=== PATIENT | female | born 1930 | race Caucasian/White ===

== ENCOUNTER 2017-01-16 21:03 | Inpatient (IN) | payer OTHER, MEDICARE ==
[~2017-01-16] VITALS: Ht 160 cm; Wt 57.6 kg
--- NOTE | 2017-01-16 21:03 | NUR ---
BIBA TO ER BED 7
[2017-01-16 21:07] VITALS: BP 161/81
--- NOTE | 2017-01-16 21:15 | NUR ---
86/F bib from [facility] for evaluation of weakness. Pt is found resting comfortably, arousable to verbal stimuli. Per daughter, patient has hx of a.fib, and CVA and states "She can't talk." Pt was able to answer by nodding her head and spoke few words. Pt is awake, unable to make her needs known. Pt on cardiac cath technologist, pulse oximetry and blood pressure monitoring. Skin warm and dry, loose. Pt arrived with an IV in place to left wrist, 20 gauge, patent, no signs of infiltration. Pt placed on pacer pads via crash cart prophylacticly.
[2017-01-16] MEDS ORDERED: QUET25TA PO (21:19)
[2017-01-16] MEDS ORDERED: APIX2.5 PO (21:19)
[2017-01-16] MEDS ORDERED: DIGO0.121 PO (21:19)
[2017-01-16] MEDS ORDERED: METO25TA PO (21:19)
[2017-01-16] MEDS ORDERED: CAR30 PO (21:19)
[2017-01-16] MEDS ORDERED: DIT5 PO (21:19)
[2017-01-16] MEDS ORDERED: MEMA5TAB PO (21:19)
[2017-01-16 21:49] LABS: BASOPHILS # (AUTO) 0.1 K/uL (0.00-0.22); BASOPHILS % (AUTO) 1.4 % (0.0-2.0); EOSINOPHILS # (AUTO) 0.1 K/uL (0-0.4); HEMATOCRIT 38.3 % (36-48); HEMOGLOBIN 12.3 g/dL (12.0-16.0); LYMPHOCYTES # (AUTO) 1.6 K/uL (2.5-16.5); LYMPHOCYTES % (AUTO) 22.6 % (20.5-51.1); MEAN CORPUSCULAR HEMOGLOBIN 27 pg (27-31); MEAN CORPUSCULAR HGB CONC 32 g/dL (33-37); MEAN CORPUSCULAR VOLUME 85 fL (80-94); MONOCYTES # (AUTO) 0.7 K/uL (0.8-1.0); MONOCYTES % (AUTO) 9.7 % (1.7-9.3); NEUTROPHILS # (AUTO) 4.6 K/uL (1.8-7.7); NEUTROPHILS % (AUTO) 64.3 % (42.2-75.2); PLATELET COUNT (AUTO) 185 K/uL (140-450); RED BLOOD CELL COUNT(AUTO) 4.52 MIL/uL (4.20-5.40); RED CELL DISTRIBUTION WIDTH 12.5 % (11.6-13.7); WHITE BLOOD COUNT (AUTO) 7.1 K/uL (4.8-10.8)
[2017-01-16 22:03] LABS: ANION GAP 11.7 (8-16); CALCIUM 8.2 mg/dL (8.5-10.1); CARBON DIOXIDE 28.2 mmol/L (21-32); CHLORIDE 108 mmol/L (98-107); CREATININE 1.1 mg/dL (0.6-1.3); GLUCOSE 104 mg/dL (74-106); POTASSIUM 3.9 mmol/L (3.5-5.1); SODIUM SERUM 144 mmol/L (136-145); UREA NITROGEN, BLOOD 20 mg/dL (7-18)
--- NOTE | 2017-01-16 22:04 | NUR ---
Daughter at bedside.
[2017-01-16 22:06] LABS: INR 1.2 (0.8-1.2); PARTIAL THROMBOPLASTIN TIME 28.3 secs (22-35.6); PROTHROMBIN TIME 12.3 secs (10.8-13.4)
[2017-01-16 22:09] LABS: ALANINE AMINOTRANSFERASE 22 U/L (14-59); ALBUMIN 3.3 g/dL (3.4-5.0); ALKALINE PHOSPHATASE 68 U/L (46-116); ASPARTATE AMINOTRANSFERASE 18 U/L (15-37); TOTAL BILIRUBIN 0.9 mg/dL (0.0-1.0); TOTAL PROTEIN, SERUM 5.8 g/dL (6.4-8.2)
[2017-01-16 22:10] LABS: LACTIC ACID 1.5 mmol/L (0.4-2.0)
[2017-01-16] MEDS ORDERED: cefTRIAXone 1,000 MG VIAL ONE (22:51)
[2017-01-16 23:05] LABS: APPEARANCE,URINE CLOUDY (CLEAR); BILIRUBIN,URINE NEGATIVE (NEGATIVE); BLOOD, URINE NEGATIVE (NEGATIVE); COLOR,URINE YELLOW (YELLOW); LEUKOCYTE ESTERASE ,URINE 1+ (NEGATIVE); NITRITE, URINE POSITIVE (NEGATIVE); PROTEIN,URINE 1+ (NEGATIVE); UGLUCOSE NEGATIVE (NEGATIVE); UROBILINOGEN,URINE 0.2 EU/dL (0.2 - 1)
--- NOTE | 2017-01-16 23:07 | NUR ---
Patient appears to be resting comfortably in bed. Vital Signs within normal limits. Respirations even and unlabored.
[2017-01-16 23:46] LABS: BACTERIA,URINE 4+ /HPF (None Seen); RBC,URINE 0-5 (RARE) /HPF (0-5); SQUAMOUS EPITHELIAL CELL,UR 0-3 (FEW) /LPF (0-3 (FEW)); WBC,URINE TOO MANY TO COUNT /HPF (0-5); WHITE BLOOD CELL CASTS,URINE 0-3 /LPF (None Seen)
--- NOTE | 2017-01-16 23:50 | NUR ---
Pt cleanse with no rinse cleanser, new gown applied, old gown removed. New dry blue andres pads applied and brief applied. Pt tolerated well. Daughter at bedside. VSS. Warm blankets and pillow provided
[2017-01-16] MEDS: NACL 0.9% 1,000 ML IV SCH (23:52)
--- NOTE | 2017-01-16 23:52 | NUR ---
Pt report given to Iglesia BARTH. Transfer of care at this time.
[2017-01-16] MEDS ORDERED: MORPHINE SULFATE 2 MG/ML SYR IVP PRN (23:55)
[2017-01-16] MEDS ORDERED: ACETAMINOPHEN 325 MG TAB PO PRN (23:55)
[2017-01-16] MEDS ORDERED: ONDANSETRON 4 MG/2 ML VIAL IM/IVP PRN (23:55)
[2017-01-16] MEDS ORDERED: HYDROcodone/APAP 7.5/325 MG 1 TAB PO PRN (23:55)
[2017-01-16] MEDS ORDERED: DOCUSATE SODIUM 100 MG GELCAP PO PRN (23:55)
--- NOTE | 2017-01-17 00:14 | NUR ---
Chart checked and completed. The patient's care was reviewed and supervised by Parminder Carias RN.
--- NOTE | 2017-01-17 00:14 | NUR ---
Patient will be admitted to care of . Admited to TELEMETRY. Will go to room 121A. Belongings list completed. Report to LARY OWEN.
[2017-01-17 00:20] VITALS: BP 144/75
[2017-01-17] MEDS ORDERED: MECLIZINE 25 MG TAB PO PRN (00:20)
--- NOTE | 2017-01-17 00:20 | NUR ---
PT CAME FROM ER VIA [facility] ACCOMPANIED BY HER DAUGHTER. PT IS APHASIC, HARD OF HEARING, HAS GENERALIZED WEAKNESS. WITH RESPIRATIONS CLEAR AND UNLABORED. NO COMPLAINTS OF PAIN AT THIS TIME. ON TELE MONITORING. WITH AN IV ON THE LEFT WRIST 20 G, PATENT AND INTACT. ORIENTED PT TO THE UNIT, BUT NEEDS FURTHER REINFORCEMENT. INITIAL ASSESSMENT DONE. ADMISSION COMPLETED WITH ANSWERS BY DAUGHTER AZALEA. INFORMED THE DAUGHTER OF VISITING HOURS. WILL CONTINUE TO MONITOR. CALL LIGHT WITHIN REACH. SAFETY CHECKS IN PLACE.
[2017-01-17] MEDS: NACL 0.9% 1,000 ML IV SCH ×3 (00:47→16:32)
[2017-01-17 01:28] LABS: FREE T4 (FREE THYROXINE) 1.16 ng/dL (0.76-1.46); MAGNESIUM 1.8 mg/dL (1.8-2.4); PHOSPHORUS 3.6 mg/dL (2.5-4.9); THYROID STIMULATING HORMONE 4.77 uIU/mL (0.34-3.74)
--- NOTE | 2017-01-17 01:59 | NUR ---
PT WENT TO CT SCAN VIA [facility]. IN STABLE CONDITION.
--- NOTE | 2017-01-17 02:35 | NUR ---
BACK FROM CT DEPT. WILL FOLLOW UP RESULT OF CT HEAD.
--- NOTE | 2017-01-17 03:08 | NUR ---
RECEIVED CT REPORT FROM GONZALEZ FROM [facility].
[2017-01-17 04:00] VITALS: BP 141/78
--- NOTE | 2017-01-17 05:13 | NUR ---
PT WAS NOTED WITH FREQUENT ECTOPY ON THE TELE MONITOR. NOTIFIED DR. HER. NO NEW ORDER. CONTINUE TO MONITOR.
[2017-01-17 05:52] LABS: BASOPHILS # (AUTO) 0.1 K/uL (0.00-0.22); BASOPHILS % (AUTO) 1.7 % (0.0-2.0); EOSINOPHILS # (AUTO) 0.2 K/uL (0-0.4); EOSINOPHILS % (AUTO) 2.6 % (0.0-4.0); HEMATOCRIT 37.7 % (36-48); HEMOGLOBIN 12.4 g/dL (12.0-16.0); LYMPHOCYTES # (AUTO) 1.7 K/uL (2.5-16.5); LYMPHOCYTES % (AUTO) 22.9 % (20.5-51.1); MEAN CORPUSCULAR HEMOGLOBIN 28 pg (27-31); MEAN CORPUSCULAR HGB CONC 33 g/dL (33-37); MEAN CORPUSCULAR VOLUME 86 fL (80-94); MONOCYTES # (AUTO) 0.8 K/uL (0.8-1.0); MONOCYTES % (AUTO) 11.5 % (1.7-9.3); NEUTROPHILS # (AUTO) 4.5 K/uL (1.8-7.7); NEUTROPHILS % (AUTO) 61.3 % (42.2-75.2); PLATELET COUNT (AUTO) 171 K/uL (140-450); RED BLOOD CELL COUNT(AUTO) 4.41 MIL/uL (4.20-5.40); RED CELL DISTRIBUTION WIDTH 12.6 % (11.6-13.7); WHITE BLOOD COUNT (AUTO) 7.3 K/uL (4.8-10.8)
[2017-01-17 06:03] LABS: ANION GAP 11.5 (8-16); CALCIUM 8.2 mg/dL (8.5-10.1); CARBON DIOXIDE 26.5 mmol/L (21-32); CHLORIDE 110 mmol/L (98-107); CREATININE 0.9 mg/dL (0.6-1.3); GLUCOSE 90 mg/dL (74-106); SODIUM SERUM 144 mmol/L (136-145); UREA NITROGEN, BLOOD 15 mg/dL (7-18)
[2017-01-17 06:04] LABS: MAGNESIUM 1.7 mg/dL (1.8-2.4)
--- NOTE | 2017-01-17 06:30 | NUR ---
SLEEPING AT THIS TIME. NO S/S OF ANY DISCOMFORT NOTED. WILL CONTINUE TO MONITOR.
--- NOTE | 2017-01-17 07:23 | NUR ---
ENDORSED TO AM SHIFT FOR CONTINUITY OF CARE. PT IN STABLE CONDITION.
--- NOTE | 2017-01-17 07:24 | NUR ---
RECEIVED REPORT FROM THE SAS PROGRAMMER REMOTE NURSE AT BEDSIDE FOR CONTINUITY OF CARE. PT IS SLEEPING. IT TOOK SOME SHAKING AND NAME CALLING TO WAKE HER UP. SHE IS HARD OF HEARING. INTRODUCED MYSELF AND UPDATED THE BOARD. SHE HAD SPOKEN BUT UNCLEAR, GARBLED SPEAK. NOTED THE IV ON L WRIST 20G NS AT 100ML. HER MAG WAS LOW AT 1.7 TODAY. WILL TALK TO THE MD. V/S WITHIN NORMAL RANGE. SKIN IS INTACT BUT SOME REDNESS ON DENISE AREA. WILL CONTINUE TO MONITOR PT.
[2017-01-17 08:00] VITALS: BP 138/78
[2017-01-17] MEDS: DILTIAZEM 30 MG TAB PO SCH ×2 (08:57→20:52)
[2017-01-17] MEDS: ATORVASTATIN 20 MG TAB PO SCH (08:58)
[2017-01-17] MEDS: LACTOBACILLUS RHAMNOSUS GG 1 EACH CAP PO SCH (08:58)
[2017-01-17] MEDS: OXYBUTYNIN 5 MG TAB PO SCH ×2 (08:58→20:52)
[2017-01-17] MEDS: DIGOXIN 0.125 MG TAB PO SCH (08:58)
[2017-01-17] MEDS: MEMANTINE 10 MG TAB PO SCH (08:59)
[2017-01-17] MEDS ORDERED: METOPROLOL 25 MG TAB PO SCH ×2 (09:00)
[2017-01-17] MEDS ORDERED: APIXABAN 2.5 MG TAB PO SCH ×2 (09:00→10:14)
--- NOTE | 2017-01-17 09:08 | NUR ---
ADMINISTERED MORNING MEDS. PT TOLERATED THEM WELL. WILL CONTINUE TO MONITOR PT.
--- NOTE | 2017-01-17 09:16 | NUR ---
PATIENT HAS BEEN SCREENED AND CATEGORIZED MODERATE NUTRITION RISK. PATIENT WILL BE SEEN WITHIN 3-5 DAYS OF ADMISSION. 01/19/17-01/21/[address]
[2017-01-17] MEDS ORDERED: MAG SULF 2000 MG/WATER PREMIX 50 ML IV ONE (10:00)
--- NOTE | 2017-01-17 10:30 | NUR ---
PT RESTING COMFORTABLY. ORDER FOR MAG RIDER FOR HER MAG 1.7 LEVEL. ADMINISTERED MAG. PT TOLERATING WELL. NO SIGNS OF DISTRESS. NO COMPLAINTS. WILL CONTINUE TO MONITOR PT.
--- NOTE | 2017-01-17 11:31 | NUR ---
U/S [employer] HERE FOR HER ECHO. PT TOLERATING WELL. HR DECREASED TO 31, NOW AT 36. ASYMPTOMATIC. WILL CHECK BP.
[2017-01-17 12:00] VITALS: BP 116/53
--- NOTE | 2017-01-17 13:50 | NUR ---
PT SLEEPING SOUNDLY. NO SIGNS OF DISTRESS. HR STILL IN THE MID 30'S. CONTINUING TO MONITOR HER CLOSELY.
--- NOTE | 2017-01-17 15:00 | NUR ---
PT TRYING TO GET OUT OF BED. GUIDED HER BACK. NOTED PT PULLED OUT IV. WILL RESTART IV.
--- NOTE | 2017-01-17 15:16 | NUR ---
RESTARTED IV ON R FA 22G. NS AT 100ML. PT TOLERATED WELL.
[2017-01-17 16:00] VITALS: BP 153/72
--- NOTE | 2017-01-17 17:23 | NUR ---
PT RESTING COMFORTABLY, VISITING WITH DAUGHTER AT BEDSIDE. NO SIGNS OF DISTRESS. WILL CONTINUE TO MONITOR PT.
--- NOTE | 2017-01-17 19:10 | NUR ---
ENDORSED PT TO THE AUTOMATIC DRILLING MACHINE OPERATOR NURSE AT BEDSIDE FOR CONTINUITY OF CARE. IV STILL INTACT. IN STABLE CONDITION.
--- NOTE | 2017-01-17 19:30 | NUR ---
RECEIVED REPORT FROM AM NURSE. PT RESTING IN BED, PT APHASIC BUT PT NODS HEAD WHEN ASKING FOR PERMISSION TO PERFORM INTERVENTIONS. PT REORIENTED TO SITUATION AND SURROUNDING. NO S/S OF ACUTE DISTRESS NOTED. FIRE EQUIPMENT INSPECTOR IN PLACE. IV ACCESS ASYMPTOMATIC, PATENT AND INTACT. IVF INFUSING WELL. DISCUSSED AND REVIEWED PLAN OF CARE WITH PT. WILL CONTINUE TO REINFORCE TEACHING. SAFETY MEASURES ENSURED. CALL LIGHT WITHIN REACH. WILL CONTINUE TO MONITOR.
[2017-01-17 20:00] VITALS: BP 130/73
[2017-01-17] MEDS: QUEtiapine FUMARATE 25 MG TAB PO SCH (20:53)
[2017-01-17] MEDS: APIXABAN 2.5 MG TAB PO SCH (20:54)
[2017-01-17] MEDS: METOPROLOL 25 MG TAB PO SCH (20:54)
--- NOTE | 2017-01-17 20:55 | NUR ---
CARDIZEM AND LOPRESSOR HELD DUE TO HR 56. REMAINING DUE MEDICATIONS ADMINISTERED WITH EDUCATION. PT NODS AND ABLE TO SWALLOW MEDICATIONS WITH EASE. SAFETY MEASURES ENSURED. CALL LIGHT WITHIN REACH. WILL CONTINUE TO MONITOR.
--- NOTE | 2017-01-17 21:29 | NUR ---
IV ROCEPHIN ADMINISTERED WITH EDUCATION. PT NODS, IVPB INFUSING WELL. PT CHUCKS ARE WET. PT CHANGED, TURNED AND REPOSITIONED, OFFLOADED PRESSURE AREAS WITH OCCASIONAL CAREGIVER. PT TOLERATED WELL. SAFETY MEASURES ENSURED. CALL LIGHT WITHIN REACH.
[2017-01-18] VITALS (7 sets, daily range): BP systolic 124–147; BP diastolic 49–81
--- NOTE | 2017-01-18 01:15 | NUR ---
PT SLEEPING. CONDITION STABLE. IVF INFUSING WELL. ALL NEEDS MET. SAFETY MEASURES ENSURED. CALL LIGHT WITHIN REACH. WILL CONTINUE TO MONITOR.
--- NOTE | 2017-01-18 04:50 | NUR ---
PT SLEEPING. CONDITION STABLE. IVF INFUSING WELL. ALL NEEDS MET. SAFETY MEASURES ENSURED. CALL LIGHT WITHIN REACH. WILL CONTINUE TO MONITOR.
[2017-01-18] MEDS: NACL 0.9% 1,000 ML IV SCH ×2 (05:05→20:26)
--- NOTE | 2017-01-18 07:30 | NUR ---
ENDORSED PLAN OF CARE TO AM NURSE. CONDITION STABLE.
--- NOTE | 2017-01-18 07:31 | NUR ---
RECEIVED REPORT FROM THE REGISTERED NURSE BEHAVIORAL HEALTH NURSE AT BEDSIDE FOR CONTINUITY OF CARE. PT IS SLEEPING. HAD TO WAKE HER UP FOR V/S. INTRODUCED MYSELF AND UPDATED THE BOARD. V/S WITHIN NORMAL RANGE. IV R FA 22G NS 60ML/HR. PT WENT BACK TO SLEEP. WILL CONTINUE TO MONITOR PT.
[2017-01-18] MEDS: DILTIAZEM 30 MG TAB PO SCH ×2 (08:43→20:20)
[2017-01-18] MEDS: LACTOBACILLUS RHAMNOSUS GG 1 EACH CAP PO SCH (08:43)
[2017-01-18] MEDS: MEMANTINE 10 MG TAB PO SCH (08:44)
[2017-01-18] MEDS: DIGOXIN 0.125 MG TAB PO SCH (08:44)
[2017-01-18] MEDS: ATORVASTATIN 20 MG TAB PO SCH (08:45)
[2017-01-18] MEDS: OXYBUTYNIN 5 MG TAB PO SCH ×2 (08:45→20:19)
[2017-01-18] MEDS: METOPROLOL 25 MG TAB PO SCH ×2 (08:45→20:22)
[2017-01-18] MEDS: APIXABAN 2.5 MG TAB PO SCH ×2 (08:50→20:21)
--- NOTE | 2017-01-18 08:55 | NUR ---
STUDENT NURSE AND INSTRUCTOR ADMINISTERED MORNING MEDS. PT TOLERATED WELL. PT V/S : 97.4F, 147/81, 76, 98%, 16R. GAVE ALL BP MEDS. WILL CONTINUE TO MONITOR PT.
--- NOTE | 2017-01-18 10:20 | NUR ---
PT'S HR DOWN TO 35. PT SLEEPING. WOKE HER UP AND RAISED HER HEAD. PT ASYMPTOMATIC. HR BACK TO 48. WILL CONTINUE TO MONITOR PT.
[2017-01-18 11:14] LABS: EOSINOPHILS # (AUTO) 0.2 K/uL (0-0.4); MEAN CORPUSCULAR VOLUME 85 fL (80-94); MONOCYTES # (AUTO) 0.8 K/uL (0.8-1.0); RED CELL DISTRIBUTION WIDTH 12.7 % (11.6-13.7); WHITE BLOOD COUNT (AUTO) 6.8 K/uL (4.8-10.8)
[2017-01-18 11:16] LABS: BASOPHILS # (AUTO) 0.2 K/uL (0.00-0.22); BASOPHILS % (AUTO) 2.5 % (0.0-2.0); EOSINOPHILS % (AUTO) 2.8 % (0.0-4.0); HEMOGLOBIN 12.8 g/dL (12.0-16.0); LYMPHOCYTES # (AUTO) 1.3 K/uL (2.5-16.5); MEAN CORPUSCULAR HEMOGLOBIN 28 pg (27-31); MEAN CORPUSCULAR HGB CONC 33 g/dL (33-37); MONOCYTES % (AUTO) 12.1 % (1.7-9.3); NEUTROPHILS # (AUTO) 4.3 K/uL (1.8-7.7); NEUTROPHILS % (AUTO) 63.6 % (42.2-75.2); PLATELET COUNT (AUTO) 196 K/uL (140-450); RED BLOOD CELL COUNT(AUTO) 4.59 MIL/uL (4.20-5.40)
[2017-01-18 11:22] LABS: ANION GAP 8.8 (8-16); CALCIUM 8.3 mg/dL (8.5-10.1); CARBON DIOXIDE 28.9 mmol/L (21-32); CHLORIDE 110 mmol/L (98-107); CREATININE 0.9 mg/dL (0.6-1.3); GLUCOSE 101 mg/dL (74-106); POTASSIUM 4.7 mmol/L (3.5-5.1); SODIUM SERUM 143 mmol/L (136-145); UREA NITROGEN, BLOOD 9 mg/dL (7-18)
--- NOTE | 2017-01-18 12:30 | NUR ---
PT DOESN'T HAVE A BIG APPETITE DAUGHTER STATED. ATE 4-5 BITES OF CHICKEN AND DIDN'T WANT TO EAT ANYMORE. DRANK SOME MILK. WILL CONTINUE TO MONITOR PT.
--- NOTE | 2017-01-18 15:20 | NUR ---
PT IS DOWNGRADED TO MS INSTEAD OF TELE. SPOKE TO DR. HUNT REGARDING CONCERNS D/T LOW HR AND HER BEING A FIB. DR HUNT IS AWARE AND WILL KEEP PT ON MS. FREQUENT MONITORING RECOMMENDED. WILL CONTINUE TO MONITOR.
[2017-01-18] MEDS ORDERED: MAGNESIUM OXIDE 400 MG TAB PO SCH (15:35)
--- NOTE | 2017-01-18 17:18 | NUR ---
PT RESTING COMFORTABLY. NO SIGNS OF DISTRESS. WILL CONTINUE TO MONITOR PT.
[2017-01-18 17:51] LABS: HEMOGLOBIN A1C 5.3 % (4.8-5.6); T4 (THYROXINE) 6.9 ug/dL (4.5-12.0)
--- NOTE | 2017-01-18 18:10 | NUR ---
PT TRIED TO GET OUT OF BED. PT STATED SHE HAS TO GO POTTY. REDIRECTED BACK TO BED. PT ATE DINNER. FED HERSELF. ABOUT 20%. PT TOLERATED WELL.
--- NOTE | 2017-01-18 19:20 | NUR ---
ENDORSED PT TO THE GANG SUPERVISOR NURSE AT BEDSIDE FOR CONTINUITY OF CARE. PT IS IN STABLE CONDITION.
--- NOTE | 2017-01-18 19:28 | NUR ---
RECEIVED FROM AM RN IN BED AWAKE AND ALERT. NONE VERBAL. [place]. EXPLAINED TO PT. IN GESTURES USE OF CALL LIGHT . ABLE TO NOD HEAD. NEEDS WILL BE ANTICIPATED AND WILL BE MET. INCONTINENT TO B AND B. WILL BE TURNED Q 2H. DX. OF UTI AND GENERALIZED WEAKNESS. IVF SITE TO RFA#22 WITH NS AT 60 ML/H.
[2017-01-18] MEDS: QUEtiapine FUMARATE 25 MG TAB PO SCH (20:19)
--- NOTE | 2017-01-18 20:30 | NUR ---
ALL P.O. MEDICATIONS SWALLOWED WELL. NO NOTED ANXIETY OR S/S OF ASPIRATION. BED ALARM ON. ENCOURAGED TO GO BACK TO SLEEP. WILL MONITOR FREQUENTLY.
--- NOTE | 2017-01-18 22:00 | NUR ---
PT. TRIES TO WALK AND GO SOMEWHERE. BED ALARM ON. ENCOURAGED TO STAY IN BED RT NIGHT TIME. KEPT CLEAN, DRY AND COMFORTABLE. NO SOB. CONFUSED.
--- NOTE | 2017-01-18 23:28 | NUR ---
PT. RESTLESS AND KEEPS GETTING UP IN BED. PT. IS FALL RISK PRECAUTION. BED ALARM ON. MONITORED FREQUENTLY. DX. UTI.
[2017-01-19] VITALS: BP 132/70
--- NOTE | 2017-01-19 01:42 | NUR ---
STILL AWAKE AT THIS TIME. WATCHED OVER BY NURSES. BED ALARM ON. ENCOURAGED TO GO TO SLEEP. PROVIDED WITH WARM BLANKET.
--- NOTE | 2017-01-19 02:00 | NUR ---
STILL AWAKE. ENCOURAGED TO SLEEP. HX. DEMENTIA. PT. NEEDS ANTICIPATED AND MET.
--- NOTE | 2017-01-19 03:00 | NUR ---
PT. FINALLY SLEEPING . NO RESTLESSNESS NOTED. BED ALARM ON .
[2017-01-19 06:34] LABS: BASOPHILS # (AUTO) 0.2 K/uL (0.00-0.22); BASOPHILS % (AUTO) 2.7 % (0.0-2.0); EOSINOPHILS # (AUTO) 0.2 K/uL (0-0.4); EOSINOPHILS % (AUTO) 3.6 % (0.0-4.0); HEMATOCRIT 36.8 % (36-48); HEMOGLOBIN 12.1 g/dL (12.0-16.0); LYMPHOCYTES # (AUTO) 1.7 K/uL (2.5-16.5); LYMPHOCYTES % (AUTO) 26.7 % (20.5-51.1); MEAN CORPUSCULAR HEMOGLOBIN 28 pg (27-31); MEAN CORPUSCULAR HGB CONC 33 g/dL (33-37); MEAN CORPUSCULAR VOLUME 86 fL (80-94); MONOCYTES # (AUTO) 0.7 K/uL (0.8-1.0); MONOCYTES % (AUTO) 11.4 % (1.7-9.3); NEUTROPHILS # (AUTO) 3.4 K/uL (1.8-7.7); NEUTROPHILS % (AUTO) 55.6 % (42.2-75.2); PLATELET COUNT (AUTO) 176 K/uL (140-450); RED CELL DISTRIBUTION WIDTH 12.8 % (11.6-13.7); WHITE BLOOD COUNT (AUTO) 6.3 K/uL (4.8-10.8)
[2017-01-19 06:53] LABS: ANION GAP 10.5 (8-16); CALCIUM 8.3 mg/dL (8.5-10.1); CARBON DIOXIDE 27.6 mmol/L (21-32); CHLORIDE 110 mmol/L (98-107); CREATININE 0.8 mg/dL (0.6-1.3); GLUCOSE 77 mg/dL (74-106); POTASSIUM 4.1 mmol/L (3.5-5.1); SODIUM SERUM 144 mmol/L (136-145); UREA NITROGEN, BLOOD 10 mg/dL (7-18)
--- NOTE | 2017-01-19 07:15 | NUR ---
ENDORSED TO THE NEXT RN FOR CONTINUITY OF CARE. SLEEPING STILL. FLACC 0-
--- NOTE | 2017-01-19 07:16 | NUR ---
RECEIVED REPORT AT BEDSIDE BY THE ORE WASHER NURSE FOR CONTINUITY OF CARE. PT IS SLEEPING. WILL BE BACK TO ASSESS PT.
--- NOTE | 2017-01-19 07:50 | NUR ---
V/S WITHIN NORMAL RANGE. PT IS VERY SLEEPY. NOTED IV ON L FA 22G AND R FA 22G. STARTED THE NS AT 60ML. SKIN INTACT. NO SIGNS OF DISTRESS. FLACC-0. WILL CONTINUE TO MONITOR.
[2017-01-19 08:00] VITALS: BP 123/76
[2017-01-19] MEDS: METOPROLOL 25 MG TAB PO SCH ×2 (09:00→20:48)
--- NOTE | 2017-01-19 09:00 | NUR ---
PT ATE 20% OF HER BREAKFAST BY HERSELF. PT DRANK ALL HER MILK AND COFFEE. PT TOLERATED WELL. WILL CONTINUE TO MONITOR PT.
[2017-01-19] MEDS: LACTOBACILLUS RHAMNOSUS GG 1 EACH CAP PO SCH (09:54)
[2017-01-19] MEDS: ATORVASTATIN 20 MG TAB PO SCH (09:54)
[2017-01-19] MEDS: DILTIAZEM 30 MG TAB PO SCH ×2 (09:55→20:48)
[2017-01-19] MEDS: ASCORBIC ACID 500 MG TAB PO SCH (09:55)
[2017-01-19] MEDS: OXYBUTYNIN 5 MG TAB PO SCH ×2 (09:55→20:47)
[2017-01-19] MEDS: MEMANTINE 10 MG TAB PO SCH (09:55)
[2017-01-19] MEDS: APIXABAN 2.5 MG TAB PO SCH ×2 (09:55→20:49)
[2017-01-19] MEDS: DIGOXIN 0.125 MG TAB PO SCH (09:56)
[2017-01-19] MEDS: FERROUS SULFATE 325 MG TABEC PO SCH (10:00)
--- NOTE | 2017-01-19 10:00 | NUR ---
ADMINISTERED MORNING MEDS. PT TOLERATED WELL. HELP LOPRESSOR D/T HER HR DROPPING. IT IS NOW AT 63. WILL CONTINUE TO MONITOR PT.
--- NOTE | 2017-01-19 11:30 | NUR ---
PT SLEEPING SOUNDLY. NO SIGNS OF DISTRESS OR PAIN. WILL CONTINUE TO MONITOR PT.
[2017-01-19] MEDS: NACL 0.9% 1,000 ML IV SCH (13:23)
--- NOTE | 2017-01-19 13:25 | NUR ---
PT SITTING UP IN BED, WATCHING TV. NO SIGNS OF DISTRESS OR DISCOMFORT. WILL CONTINUE TO MONITOR PT.
[2017-01-19 16:00] VITALS: BP 104/61
--- NOTE | 2017-01-19 16:00 | NUR ---
DAUGHTER CAME AND IS VISITING WITH PT. DAUGHTER WANTED TO TALK TO THE MD IN CHARGE. REQUEST DR. MUHAMMAD TO COME AND SPEAK TO HER. PER DR MUHAMMAD, WILL SEE IF PT'S FACILITY HAS PT. PT MALIKA TODAY SUGGESTED SHE GET PT X 5 DAYS. POSSIBLY D/C TOMORROW. DAUGHTER AGREED.
--- NOTE | 2017-01-19 18:30 | NUR ---
PT REMOVED BOTH IV ACCESS. BLEEDING ALL OVER. HAD TO CHANGE PT'S GOWN AND LINENS. PT STABLE. NO IV ACCESS.
--- NOTE | 2017-01-19 19:28 | NUR ---
RECEIVED FROM AM RN IN BED AWAKE AND ALERT. CONFUSED. ABLE TO VERBALIZE BUT MUMBLED . [place] IQUA . NEEDS ANTICIPATED AND WILL BE MET. TOTAL CARE. DX. OF UTI AND GENERAL WEAKNESS.
--- NOTE | 2017-01-19 19:30 | NUR ---
ENDORSED PT TO THE LAN/WAN ENGINEER NURSE AT BEDSIDE FOR CONTINUITY OF CARE. PT IS IN STABLE CONDITION.
[2017-01-19 20:39] VITALS: BP 153/78
[2017-01-19] MEDS: QUEtiapine FUMARATE 25 MG TAB PO SCH (20:48)
--- NOTE | 2017-01-19 22:04 | NUR ---
ALL P.O. MEDICATIONS SWALLOWED WELL. TOTAL CARE. ENCOURAGED TO SLEEP RT NIGHT TIME. NO SOB. NO RESTLESSNESS.
--- NOTE | 2017-01-20 | NUR ---
PT. STILL AWAKE AND REFUSING TO SLEEP. WATCHING TV. NO RESTLESSNESS AND NO SOB.
--- NOTE | 2017-01-20 02:00 | NUR ---
SLEEPING AT THIS TIME.
--- NOTE | 2017-01-20 04:14 | NUR ---
SLEEPING AT THIS TIME. NO RESTLESSNESS. NO SOB.
[2017-01-20] MEDS: NACL 0.9% 1,000 ML IV SCH (05:19)
[2017-01-20 05:49] LABS: BASOPHILS # (AUTO) 0.1 K/uL (0.00-0.22); BASOPHILS % (AUTO) 0.9 % (0.0-2.0); EOSINOPHILS # (AUTO) 0.2 K/uL (0-0.4); EOSINOPHILS % (AUTO) 3.4 % (0.0-4.0); HEMOGLOBIN 12.2 g/dL (12.0-16.0); LYMPHOCYTES # (AUTO) 1.8 K/uL (2.5-16.5); LYMPHOCYTES % (AUTO) 25.8 % (20.5-51.1); MEAN CORPUSCULAR HEMOGLOBIN 28 pg (27-31); MEAN CORPUSCULAR HGB CONC 33 g/dL (33-37); MEAN CORPUSCULAR VOLUME 85 fL (80-94); MONOCYTES % (AUTO) 14.4 % (1.7-9.3); NEUTROPHILS # (AUTO) 3.9 K/uL (1.8-7.7); NEUTROPHILS % (AUTO) 55.5 % (42.2-75.2); PLATELET COUNT (AUTO) 184 K/uL (140-450); RED BLOOD CELL COUNT(AUTO) 4.35 MIL/uL (4.20-5.40); RED CELL DISTRIBUTION WIDTH 12.7 % (11.6-13.7)
[2017-01-20 06:06] LABS: ANION GAP 10.2 (8-16); CALCIUM 8.7 mg/dL (8.5-10.1); CARBON DIOXIDE 29.1 mmol/L (21-32); CHLORIDE 109 mmol/L (98-107); CREATININE 0.9 mg/dL (0.6-1.3); GLUCOSE 82 mg/dL (74-106); POTASSIUM 4.3 mmol/L (3.5-5.1); SODIUM SERUM 144 mmol/L (136-145); UREA NITROGEN, BLOOD 10 mg/dL (7-18)
--- NOTE | 2017-01-20 07:12 | NUR ---
RECEIVED REPORT FROM NIGHT RN. PT RESTING IN BED. AAO1. NO S/S OF ACUTE DISTRESS. FLACC-0. IV SITE PATENT AND INTACT. CALL LIGHT WITHIN REACH. SAFETY MEASURES ENSURED. WILL CONTINUE TO MONITOR.
[2017-01-20] MEDS: DIGOXIN 0.125 MG TAB PO SCH (08:29)
[2017-01-20] MEDS: DILTIAZEM 30 MG TAB PO SCH (08:29)
[2017-01-20] MEDS: METOPROLOL 25 MG TAB PO SCH (08:30)
[2017-01-20] MEDS: ATORVASTATIN 20 MG TAB PO SCH (08:30)
[2017-01-20] MEDS: ASCORBIC ACID 500 MG TAB PO SCH (08:30)
[2017-01-20] MEDS: OXYBUTYNIN 5 MG TAB PO SCH (08:31)
[2017-01-20] MEDS: MEMANTINE 10 MG TAB PO SCH (08:31)
[2017-01-20] MEDS: LACTOBACILLUS RHAMNOSUS GG 1 EACH CAP PO SCH (08:31)
[2017-01-20] MEDS: FERROUS SULFATE 325 MG TABEC PO SCH (08:31)
--- NOTE | 2017-01-20 08:31 | NUR ---
AM MEDICATIONS GIVEN WITH EDUCATION. PT UNABLE TO COMPREHEND. NO S/S OF ACUTE DISTRESS. WILL CONTINUE TO MONITOR.
[2017-01-20] MEDS: APIXABAN 2.5 MG TAB PO SCH (08:37)
[2017-01-20] MEDS ORDERED: LACTOBACILLUS RHAMNOSUS GG 1 EACH CAP PO SCH (09:00)
[2017-01-20 09:50] VITALS: BP 132/87
--- NOTE | 2017-01-20 11:20 | NUR ---
PT'S DAUGHTER KARTIK STATE SHE WANTS TO CHECK HER MOTHER OUT AGAINST MEDICAL ADVICE. DR. MUHAMMAD MADE AWARE, MD EXPLAINED RISKS OF LEAVING TO DAUGHTER. DAUGHTER VERBALIZED UNDERSTANDING. PT'S IV TAKEN OUT, TIP INTACT. NO S/S OF ACUTE DISTRESS. PT TAKEN OFF UNIT.
--- NOTE | 2017-01-20 11:35 | NUR ---
01/20/17 RD INITIAL ASSESSMENT COMPLETED PLEASE REFER TO NUTRITION ASSESSMENT UNDER CARE ACTIVITY FOR ESTIMATED NUTRITIONAL NEEDS. 1. CONTINUE CARDIAC DIET 2. ADD HEALTH SHAKE TID (DUE TO POOR PO INTAKE) 3. RD TO FOLLOW-UP 2-3 DAYS; HIGH RISK SHANDRA BLANCHARD, RD
--- NOTE | 2017-01-20 11:55 | NUR ---
PT NOTES SPOKE W/ RN "BELIA" REGARDING PATIENT. RN STATED PATIENT HAS BEEN DISCHARGED FROM THE HOSPITAL. PRIMARY THERAPIST AWARE. PVE Addendum: 01/20/17 at 1418 by Beulah Helton PT PHYSICAL THERAPY CO-SIGN The Physical Therapy Progress Notes documented by Hearing Specialist have been reviewed. Reviewed/Co-Signed by: Beulah Helton PT Documentation Done by: SAUL CARROLL PTA PT NO LONGER IN FACILITY
== END 2017-01-20 11:20 | disposition left against medical advice (07) | DRG 56 ==
LOC: MED 21:03 → MTU 01-17 00:05
PROVIDERS: ADMIT Student in an Organized Health Care Education/Training Program; ATTEND Student in an Organized Health Care Education/Training Program
DX: G30.9 Alzheimer's disease, unspecified (principal); G93.41 Metabolic encephalopathy; N17.0 Acute kidney failure with tubular necrosis; F02.81 Dementia in other diseases classified elsewhere, unspecified severity, with behavioral disturbance; N39.0 Urinary tract infection, site not specified; E44.0 Moderate protein-calorie malnutrition; J84.9 Interstitial pulmonary disease, unspecified; R65.10 Systemic inflammatory response syndrome (SIRS) of non-infectious origin without acute organ dysfunction; G90.9 Disorder of the autonomic nervous system, unspecified; R32 Unspecified urinary incontinence; I48.91 Unspecified atrial fibrillation; Z96.649 Presence of unspecified artificial hip joint; E83.42 Hypomagnesemia; E87.8 Other disorders of electrolyte and fluid balance, not elsewhere classified; D64.9 Anemia, unspecified; E11.9 Type 2 diabetes mellitus without complications; Z53.21 Procedure and treatment not carried out due to patient leaving prior to being seen by health care provider; E02 Subclinical iodine-deficiency hypothyroidism; I25.10 Atherosclerotic heart disease of native coronary artery without angina pectoris; W18.30XA Fall on same level, unspecified, initial encounter; Y93.89 Activity, other specified; Y92.89 Other specified places as the place of occurrence of the external cause; Y99.8 Other external cause status; Z79.899 Other long term (current) drug therapy; Z86.73 Personal history of transient ischemic attack (TIA), and cerebral infarction without residual deficits; Z90.710 Acquired absence of both cervix and uterus; Z87.81 Personal history of (healed) traumatic fracture; Z90.49 Acquired absence of other specified parts of digestive tract; Z56.0 Unemployment, unspecified; Z68.22 Body mass index [BMI] 22.0-22.9, adult
CPT/HCPCS: 36415; 70450; 71010; 80048; 80053; 80162; 81001; 82140; 82150; 82550; 82553; 83036; 83605; 83690; 83735; 83874; 83880; 84100; 84436; 84439; 84443; 84479; 84484; 85025; 85610; 85730; 87040; 87081; 87086; 87186; 93005; 93880; 96365; 97110; 99285; C1758; J0696; J3475; J7030; J7060; Q0092